=== PATIENT | male | born 1945 | race Caucasian/White ===

== ENCOUNTER 2017-06-16 13:12 | Inpatient (IN) | payer MEDICARE, OTHER ==
[2017-06-15] MEDS: INSULIN GLARGINE [LANtus] 3 ML PEN SC (22:58)
[2017-06-16] MEDS ORDERED: ONDANSETRON 4 MG INJ IV (14:30)
[2017-06-16] MEDS ORDERED: ZOLPIDEM 5 MG TAB PO (14:30)
[2017-06-16] MEDS ORDERED: NACL 0.9% 3 ML SYG IV (14:30)
[2017-06-16] MEDS ORDERED: DOCUSATE SODIUM 100 MG CAP PO (14:30)
[2017-06-16 14:53] LABS: ADD MAN DIFF? NO
[2017-06-16 14:58] LABS: ABNORMAL IP MESSAGE 1; BASOPHIL # 0.1 10^3/ul (0.0-0.1); BASOPHILS % 1.5 % (0.0-2.0); EOSINOPHILS # 0.2 10^3/ul (0.0-0.5); HEMATOCRIT 30.3 % (42.0-52.0); LYMPHOCYTES # 0.6 10^3/ul (0.8-2.9); MEAN CORPUSCULAR HEMOGLOBIN 28.7 pg (29.0-33.0); MEAN CORPUSCULAR VOLUME 86.8 fl (82.0-101.0); MEAN PLATELET VOLUME 12.1 fl (7.4-10.4); MONOCYTE # 0.6 10^3/ul (0.3-0.9); MONOCYTES % 12.8 % (0.0-11.0); NEUTROPHIL # 3.3 10^3/ul (1.6-7.5); NEUTROPHILS % 69.5 % (39.0-77.0); PLATELET COUNT 214 10^3/UL (140-415); POSITIVE DIFF @See below; RED BLOOD COUNT 3.49 10^6/ul (4.70-6.10); RED CELL DISTRIBUTION WIDTH 15.4 % (11.5-14.5)
[2017-06-16 14:58] LABS: WHITE BLOOD COUNT 4.8 10^3/ul (4.8-10.8)
[2017-06-16] MEDS ORDERED: GLUCOSE GEL 15 GRAM TUBE BUCCAL (15:00)
[2017-06-16] MEDS ORDERED: INSULIN ASPART [NOVOLOG] 3 ML PEN SC (15:00)
[2017-06-16] MEDS ORDERED: DEXTROSE 50% 50 ML SYRINGE IV ×2 (15:00)
[2017-06-16] MEDS ORDERED: GLUCAGON 1 MG INJ IM (15:00)
[2017-06-16] MEDS ORDERED: GLUCOSE GEL 15 GRAM TUBE PO ×2 (15:00)
[2017-06-16 15:12] LABS: INR 0.93; PROTIME 12.5 Sec (11.9-14.9)
[2017-06-16 15:13] LABS: PARTIAL THROMBOPLASTIN TIME 30.4 Sec (25.0-35.0)
[2017-06-16 15:25] LABS: ALANINE AMINOTRANSFERASE 52 IU/L (13-69); ALBUMIN 3.2 g/dl (3.3-4.9); ALBUMIN/GLOBULIN RATIO 1.18; ALKALINE PHOSPHATASE 76 IU/L (42-121); ANION GAP 12 (8-16); ASPARTATE AMINO TRANSFERASE 42 IU/L (15-46); BLOOD UREA NITROGEN 67 mg/dl (7-20); CALCIUM 8.3 mg/dl (8.4-10.2); CARBON DIOXIDE 27 mmol/L (21-31); CHLORIDE 98 mmol/L (97-110); CREATININE 5.05 mg/dl (0.61-1.24); GLUCOSE 186 mg/dl (70-220); MAGNESIUM 2.2 mg/dl (1.7-2.5); PHOSPHORUS 6.1 mg/dl (2.5-4.9); POTASSIUM 3.3 mmol/L (3.5-5.1); SODIUM 134 mmol/L (135-144); TOTAL PROTEIN 5.9 g/dl (6.1-8.1)
[2017-06-16] MEDS ORDERED: BUMETANIDE 6 MG in DEXTROSE 5% 36 ML IV (16:00)
[2017-06-16] MEDS: POTASSIUM CHLORIDE (SR) 20 MEQ TAB PO (17:02)
[2017-06-16] MEDS: INSULIN ASPART [NOVOLOG] 3 ML PEN SC (18:00)
[2017-06-16] MEDS ORDERED: METOPROLOL 50 MG TAB PO (21:00)
[2017-06-16] MEDS ORDERED: [UNRECOGNIZED DRUG - OTHER] XX (21:00)
[2017-06-16] MEDS: ATORVASTATIN 40 MG TAB PO (21:01)
[2017-06-16] MEDS: RANITIDINE 150 MG TAB PO (23:20)
[2017-06-17] MEDS: ACCU-CHEK XX (02:00)
[2017-06-17] MEDS: PANTOPRAZOLE (EC) 40 MG TAB PO (05:45)
[2017-06-17 06:08] LABS: ADD MAN DIFF? NO
[2017-06-17 06:22] LABS: BASOPHIL # 0.1 10^3/ul (0.0-0.1); BASOPHILS % 1.5 % (0.0-2.0); EOSINOPHILS # 0.2 10^3/ul (0.0-0.5); EOSINOPHILS % 4.3 % (0.0-7.0); HEMATOCRIT 28.5 % (42.0-52.0); HEMOGLOBIN 9.4 g/dl (14.0-18.0); LYMPHOCYTES # 0.8 10^3/ul (0.8-2.9); LYMPHOCYTES % 17.1 % (15.0-51.0); MEAN CORPUSCULAR HEMOGLOBIN 28.5 pg (29.0-33.0); MEAN CORPUSCULAR VOLUME 86.4 fl (82.0-101.0); MEAN PLATELET VOLUME 12.4 fl (7.4-10.4); MONOCYTE # 0.6 10^3/ul (0.3-0.9); MONOCYTES % 12.8 % (0.0-11.0); NEUTROPHILS % 64.1 % (39.0-77.0); PLATELET COUNT 190 10^3/UL (140-415); RED CELL DISTRIBUTION WIDTH 15.2 % (11.5-14.5)
[2017-06-17 06:22] LABS: WHITE BLOOD COUNT 4.7 10^3/ul (4.8-10.8)
[2017-06-17 06:54] LABS: ALANINE AMINOTRANSFERASE 43 IU/L (13-69); ALBUMIN 2.9 g/dl (3.3-4.9); ALBUMIN/GLOBULIN RATIO 1.03; ALKALINE PHOSPHATASE 57 IU/L (42-121); ANION GAP 12 (8-16); ASPARTATE AMINO TRANSFERASE 35 IU/L (15-46); BILIRUBIN,INDIRECT 0.1 mg/dl (0-1.1); BILIRUBIN,TOTAL 0.1 mg/dl (0.2-1.3); BLOOD UREA NITROGEN 70 mg/dl (7-20); CALCIUM 8.7 mg/dl (8.4-10.2); CARBON DIOXIDE 29 mmol/L (21-31); CHLORIDE 100 mmol/L (97-110); CREATININE 5.07 mg/dl (0.61-1.24); GLUCOSE 118 mg/dl (70-220); SODIUM 138 mmol/L (135-144); TOTAL PROTEIN 5.7 g/dl (6.1-8.1)
[2017-06-17] MEDS: INSULIN ASPART [NOVOLOG] 3 ML PEN SC ×3 (08:15→17:28)
[2017-06-17] MEDS: INSULIN GLARGINE [LANtus] 3 ML PEN SC (08:26)
[2017-06-17] MEDS: ASPIRIN 81 MG TAB PO (08:26)
[2017-06-17] MEDS: MUPIROCIN 2% 22 GM OINT TOP (08:27)
[2017-06-17] MEDS: POTASSIUM CHLORIDE (SR) 20 MEQ TAB PO ×3 (08:27→20:18)
[2017-06-17 10:58] LABS: TOTAL IRON BINDING CAPACITY 341 ug/dl (241-421)
[2017-06-17 11:52] LABS: % IRON SATURATION 10 % SAT (22-52); IRON 33 ug/dl (35-150)
[2017-06-17 12:12] LABS: FERRITIN 29.6 ng/ml (11.1-264.0)
[2017-06-17] MEDS: REFRESH TEARS BOTH EYES (15:36)
[2017-06-17] MEDS: EPOETIN 10000 UNITS/1 ML INJ (ESRD) SC (19:34)
[2017-06-17] MEDS: ATORVASTATIN 40 MG TAB PO (20:18)
[2017-06-17] MEDS: RANITIDINE 150 MG TAB PO (20:18)
[2017-06-17] MEDS: SOD FERRIC GLUC COMPLX 125 MG in SOD CHLORIDE 0.9% 100 ML IVPB (21:46)
[2017-06-18] MEDS: ACCU-CHEK XX (02:00)
[2017-06-18] MEDS: REFRESH TEARS BOTH EYES (06:00)
[2017-06-18] MEDS: PANTOPRAZOLE (EC) 40 MG TAB PO (06:00)
[2017-06-18 06:05] LABS: ADD MAN DIFF? NO
[2017-06-18 06:14] LABS: ABNORMAL IP MESSAGE 1; BASOPHILS % 0.9 % (0.0-2.0); EOSINOPHILS # 0.2 10^3/ul (0.0-0.5); EOSINOPHILS % 3.8 % (0.0-7.0); HEMATOCRIT 30.4 % (42.0-52.0); HEMOGLOBIN 9.8 g/dl (14.0-18.0); LYMPHOCYTES # 0.6 10^3/ul (0.8-2.9); LYMPHOCYTES % 12.7 % (15.0-51.0); MEAN CORPUSCULAR HEMOGLOBIN 28.1 pg (29.0-33.0); MEAN CORPUSCULAR HGB CONC 32.2 g/dl (32.0-37.0); MEAN CORPUSCULAR VOLUME 87.1 fl (82.0-101.0); MEAN PLATELET VOLUME 12.3 fl (7.4-10.4); MONOCYTE # 0.5 10^3/ul (0.3-0.9); MONOCYTES % 10.7 % (0.0-11.0); NEUTROPHIL # 3.2 10^3/ul (1.6-7.5); NEUTROPHILS % 71.5 % (39.0-77.0); PLATELET COUNT 185 10^3/UL (140-415); POSITIVE DIFF @See below; RED BLOOD COUNT 3.49 10^6/ul (4.70-6.10); RED CELL DISTRIBUTION WIDTH 14.9 % (11.5-14.5)
[2017-06-18 06:14] LABS: WHITE BLOOD COUNT 4.5 10^3/ul (4.8-10.8)
[2017-06-18 06:33] LABS: ALANINE AMINOTRANSFERASE 40 IU/L (13-69); ALBUMIN 2.9 g/dl (3.3-4.9); ALBUMIN/GLOBULIN RATIO 1.07; ALKALINE PHOSPHATASE 58 IU/L (42-121); ANION GAP 14 (8-16); ASPARTATE AMINO TRANSFERASE 24 IU/L (15-46); BLOOD UREA NITROGEN 71 mg/dl (7-20); CALCIUM 8.3 mg/dl (8.4-10.2); CARBON DIOXIDE 26 mmol/L (21-31); CHLORIDE 102 mmol/L (97-110); CREATININE 5.08 mg/dl (0.61-1.24); GLUCOSE 164 mg/dl (70-220); POTASSIUM 3.8 mmol/L (3.5-5.1); SODIUM 138 mmol/L (135-144); TOTAL PROTEIN 5.6 g/dl (6.1-8.1)
[2017-06-18] MEDS: INSULIN ASPART [NOVOLOG] 3 ML PEN SC ×3 (08:16→17:30)
[2017-06-18] MEDS: INSULIN GLARGINE [LANtus] 3 ML PEN SC (08:17)
[2017-06-18] MEDS: ASPIRIN 81 MG TAB PO (08:18)
[2017-06-18] MEDS: POTASSIUM CHLORIDE (SR) 20 MEQ TAB PO ×3 (08:18→21:03)
[2017-06-18] MEDS: MUPIROCIN 2% 22 GM OINT TOP (08:23)
[2017-06-18] MEDS: BUMETANIDE 6 MG in DEXTROSE 5% 36 ML IV (10:46)
[2017-06-18 13:29] LABS: HAAIG REFLEX REFLEX FILED
[2017-06-18 14:18] LABS: HEPATITIS B SURFACE ANTIGEN NEGATIVE (NEGATIVE)
[2017-06-18 14:36] LABS: HEPATITIS B CORE ANTIBODY NEGATIVE (NEGATIVE); HEPATITIS C VIRAL ANTIBODY NEGATIVE (NEGATIVE)
[2017-06-18] MEDS: ACETAMINOPHEN 325 MG TAB PO (18:08)
[2017-06-18] MEDS: ATORVASTATIN 40 MG TAB PO (21:04)
[2017-06-18] MEDS: RANITIDINE 150 MG TAB PO (21:04)
[2017-06-18] MEDS: SOD FERRIC GLUC COMPLX 125 MG in SOD CHLORIDE 0.9% 100 ML IVPB (23:20)
[2017-06-19] MEDS: ACCU-CHEK XX (02:00)
[2017-06-19 06:27] LABS: ADD MAN DIFF? NO
[2017-06-19 06:34] LABS: BASOPHIL # 0.1 10^3/ul (0.0-0.1); BASOPHILS % 1.3 % (0.0-2.0); EOSINOPHILS # 0.2 10^3/ul (0.0-0.5); EOSINOPHILS % 3.4 % (0.0-7.0); HEMATOCRIT 29.3 % (42.0-52.0); HEMOGLOBIN 9.5 g/dl (14.0-18.0); LYMPHOCYTES # 0.8 10^3/ul (0.8-2.9); LYMPHOCYTES % 14.7 % (15.0-51.0); MEAN CORPUSCULAR HGB CONC 32.4 g/dl (32.0-37.0); MEAN CORPUSCULAR VOLUME 86.4 fl (82.0-101.0); MEAN PLATELET VOLUME 12.6 fl (7.4-10.4); MONOCYTE # 0.6 10^3/ul (0.3-0.9); MONOCYTES % 12.2 % (0.0-11.0); NEUTROPHIL # 3.6 10^3/ul (1.6-7.5); PLATELET COUNT 172 10^3/UL (140-415); RED BLOOD COUNT 3.39 10^6/ul (4.70-6.10); RED CELL DISTRIBUTION WIDTH 15.1 % (11.5-14.5)
[2017-06-19 06:34] LABS: WHITE BLOOD COUNT 5.3 10^3/ul (4.8-10.8)
[2017-06-19] MEDS: PANTOPRAZOLE (EC) 40 MG TAB PO (06:41)
[2017-06-19 07:15] LABS: ALANINE AMINOTRANSFERASE 39 IU/L (13-69); ALBUMIN 2.9 g/dl (3.3-4.9); ALBUMIN/GLOBULIN RATIO 1.11; ALKALINE PHOSPHATASE 58 IU/L (42-121); ANION GAP 14 (8-16); ASPARTATE AMINO TRANSFERASE 26 IU/L (15-46); BLOOD UREA NITROGEN 78 mg/dl (7-20); CALCIUM 8.4 mg/dl (8.4-10.2); CARBON DIOXIDE 27 mmol/L (21-31); CHLORIDE 101 mmol/L (97-110); GLUCOSE 124 mg/dl (70-220); POTASSIUM 3.5 mmol/L (3.5-5.1); SODIUM 138 mmol/L (135-144); TOTAL PROTEIN 5.5 g/dl (6.1-8.1)
[2017-06-19] MEDS: INSULIN ASPART [NOVOLOG] 3 ML PEN SC ×3 (08:03→17:39)
[2017-06-19] MEDS: ASPIRIN 81 MG TAB PO (08:07)
[2017-06-19] MEDS: POTASSIUM CHLORIDE (SR) 20 MEQ TAB PO ×4 (08:08→20:36)
[2017-06-19] MEDS: MUPIROCIN 2% 22 GM OINT TOP (08:09)
[2017-06-19] MEDS: INSULIN GLARGINE [LANtus] 3 ML PEN SC (08:11)
[2017-06-19] MEDS: BUMETANIDE 6 MG in DEXTROSE 5% 36 ML IV (10:59)
[2017-06-19] MEDS: METOLAZONE 5 MG TAB PO (11:06)
[2017-06-19] MEDS: EPOETIN 10000 UNITS/1 ML INJ (ESRD) SC (17:38)
[2017-06-19] MEDS: ATORVASTATIN 40 MG TAB PO (20:37)
[2017-06-19] MEDS: RANITIDINE 150 MG TAB PO (20:37)
[2017-06-19] MEDS: SOD FERRIC GLUC COMPLX 125 MG in SOD CHLORIDE 0.9% 100 ML IVPB (22:11)
[2017-06-20] MEDS: ACCU-CHEK XX (02:00)
[2017-06-20] MEDS: PANTOPRAZOLE (EC) 40 MG TAB PO (05:36)
[2017-06-20] MEDS: METOLAZONE 5 MG TAB PO (05:37)
[2017-06-20 07:09] LABS: ALANINE AMINOTRANSFERASE 36 IU/L (13-69); ALBUMIN 2.9 g/dl (3.3-4.9); ALBUMIN/GLOBULIN RATIO 0.93; ALKALINE PHOSPHATASE 61 IU/L (42-121); ANION GAP 14 (8-16); ASPARTATE AMINO TRANSFERASE 26 IU/L (15-46); BILIRUBIN,INDIRECT 0.1 mg/dl (0-1.1); BILIRUBIN,TOTAL 0.1 mg/dl (0.2-1.3); BLOOD UREA NITROGEN 77 mg/dl (7-20); CALCIUM 9.1 mg/dl (8.4-10.2); CARBON DIOXIDE 26 mmol/L (21-31); CHLORIDE 101 mmol/L (97-110); CREATININE 5.04 mg/dl (0.61-1.24); GLUCOSE 132 mg/dl (70-220); MAGNESIUM 1.9 mg/dl (1.7-2.5); POTASSIUM 3.4 mmol/L (3.5-5.1); SODIUM 138 mmol/L (135-144)
[2017-06-20] MEDS: INSULIN ASPART [NOVOLOG] 3 ML PEN SC (07:59)
[2017-06-20] MEDS: INSULIN GLARGINE [LANtus] 3 ML PEN SC (07:59)
[2017-06-20] MEDS: POTASSIUM CHLORIDE (SR) 20 MEQ TAB PO (08:00)
[2017-06-20] MEDS: ASPIRIN 81 MG TAB PO (08:00)
[2017-06-20] MEDS: MUPIROCIN 2% 22 GM OINT TOP (08:01)
[2017-06-20] MEDS: SOD FERRIC GLUC COMPLX 125 MG in SOD CHLORIDE 0.9% 100 ML IVPB (10:01)
== END 2017-06-20 11:45 | disposition home or self-care (01) | DRG 683 ==
LOC: MS2 13:12
PROVIDERS: Internal Medicine
DX: I12.0 Hypertensive chronic kidney disease with stage 5 chronic kidney disease or end stage renal disease (principal); N18.5 Chronic kidney disease, stage 5; E11.21 Type 2 diabetes mellitus with diabetic nephropathy; Z79.4 Long term (current) use of insulin; Z95.1 Presence of aortocoronary bypass graft; E87.6 Hypokalemia
CPT/HCPCS: 71045; 80053; 82728; 82962; 83540; 83735; 84100; 85025; 85610; 85730; 86704; 86709; 86803; 87340; 93005

== ENCOUNTER 2017-08-19 18:43 | Inpatient (IN) | payer MEDICARE, OTHER ==
[2017-08-19] MEDS ORDERED: ZOLPIDEM 5 MG TAB PO (19:30)
[2017-08-19] MEDS ORDERED: NACL 0.9% 3 ML SYG IV (19:30)
[2017-08-19] MEDS ORDERED: LIDOCAINE 1% (MDV) 10 ML INJ INFIL (19:46)
[2017-08-19] MEDS ORDERED: DEXTROSE 50% 50 ML SYRINGE IV ×2 (20:00)
[2017-08-19] MEDS ORDERED: GLUCOSE GEL 15 GRAM TUBE BUCCAL (20:00)
[2017-08-19] MEDS ORDERED: GLUCOSE GEL 15 GRAM TUBE PO ×2 (20:00)
[2017-08-19] MEDS ORDERED: GLUCAGON 1 MG INJ IM (20:00)
[2017-08-19 20:34] LABS: ADD MAN DIFF? NO; HAAIG REFLEX REFLEX FILED
[2017-08-19] MEDS: INSULIN ASPART [NOVOLOG] 3 ML PEN SC (20:34)
[2017-08-19 20:36] LABS: BASOPHILS % 0.7 % (0.0-2.0); EOSINOPHILS # 0.2 10^3/ul (0.0-0.5); EOSINOPHILS % 2.9 % (0.0-7.0); HEMATOCRIT 28.5 % (42.0-52.0); HEMOGLOBIN 9.6 g/dl (14.0-18.0); LYMPHOCYTES # 0.7 10^3/ul (0.8-2.9); LYMPHOCYTES % 12.9 % (15.0-51.0); MEAN CORPUSCULAR HEMOGLOBIN 28.1 pg (29.0-33.0); MEAN CORPUSCULAR HGB CONC 33.7 g/dl (32.0-37.0); MEAN CORPUSCULAR VOLUME 83.3 fl (82.0-101.0); MEAN PLATELET VOLUME 11.3 fl (7.4-10.4); MONOCYTE # 0.7 10^3/ul (0.3-0.9); NEUTROPHIL # 3.9 10^3/ul (1.6-7.5); NEUTROPHILS % 71.3 % (39.0-77.0); PLATELET COUNT 217 10^3/UL (140-415); RED BLOOD COUNT 3.42 10^6/ul (4.70-6.10)
[2017-08-19 20:36] LABS: WHITE BLOOD COUNT 5.5 10^3/ul (4.8-10.8)
[2017-08-19] MEDS: ATORVASTATIN 40 MG TAB PO (20:39)
[2017-08-19 20:52] LABS: HEMOGLOBIN A1C 7.3 % (0-5.9)
[2017-08-19 20:54] LABS: IRON 47 ug/dl (35-150)
[2017-08-19 20:56] LABS: ALANINE AMINOTRANSFERASE 40 IU/L (13-69); ALBUMIN 2.9 g/dl (3.3-4.9); ALBUMIN/GLOBULIN RATIO 1.03; ALKALINE PHOSPHATASE 90 IU/L (42-121); ANION GAP 15 (8-16); ASPARTATE AMINO TRANSFERASE 35 IU/L (15-46); BLOOD UREA NITROGEN 65 mg/dl (7-20); CALCIUM 7.7 mg/dl (8.4-10.2); CARBON DIOXIDE 28 mmol/L (21-31); CHLORIDE 100 mmol/L (97-110); CREATININE 5.13 mg/dl (0.61-1.24); GLUCOSE 85 mg/dl (70-220); POTASSIUM 3.3 mmol/L (3.5-5.1); SODIUM 140 mmol/L (135-144); TOTAL PROTEIN 5.7 g/dl (6.1-8.1)
[2017-08-19 21:03] LABS: % IRON SATURATION 19 % SAT (22-52); TOTAL IRON BINDING CAPACITY 253 ug/dl (241-421)
[2017-08-19 21:26] LABS: HEPATITIS B SURFACE ANTIGEN NEGATIVE (NEGATIVE)
[2017-08-19 21:29] LABS: FERRITIN 98.2 ng/ml (11.1-264.0)
[2017-08-19 21:43] LABS: HEPATITIS B CORE ANTIBODY NEGATIVE (NEGATIVE); HEPATITIS C VIRAL ANTIBODY NEGATIVE (NEGATIVE)
[2017-08-19] MEDS: ACETAMINOPHEN 325 MG TAB PO (22:55)
[2017-08-20] MEDS: INSULIN ASPART [NOVOLOG] 3 ML PEN SC ×4 (08:15→20:58)
[2017-08-20] MEDS: INSULIN GLARGINE [LANtus] 3 ML PEN SC (08:19)
[2017-08-20] MEDS ORDERED: EPOETIN 10000 UNITS/1 ML INJ (ESRD) SC (10:00)
[2017-08-20] MEDS: PANTOPRAZOLE (EC) 40 MG TAB PO (10:37)
[2017-08-20] MEDS: ASPIRIN 81 MG TAB PO (10:37)
[2017-08-20] MEDS: AMLODIPINE 10 MG TAB PO (10:37)
[2017-08-20] MEDS: POTASSIUM CHLORIDE (SR) 10 MEQ TAB PO ×2 (10:54→20:51)
[2017-08-20 11:15] LABS: ADD UMIC YES; UR ASCORBIC ACID NEGATIVE (NEGATIVE); UR BACTERIA FEW /HPF (NONE SEEN); UR BILIRUBIN (Dip) NEGATIVE (NEGATIVE); UR BLOOD (Dip) NEGATIVE (NEGATIVE); UR CLARITY CLEAR (CLEAR); UR COLOR YELLOW (YELLOW); UR GLUCOSE (Dip) 2+ mg/dL (NEGATIVE); UR KETONES (Dip) NEGATIVE (NEGATIVE); UR LEUKOCYTE ESTERASE (Dip) NEGATIVE Leu/ul (NEGATIVE); UR NITRITE (Dip) NEGATIVE (NEGATIVE); UR RBC 2 /HPF (0-5); UR SPECIFIC GRAVITY (Dip) 1.011 (1.003-1.030); UR TOTAL PROTEIN (Dip) 3+ mg/dl (NEGATIVE); UR UROBILINOGEN (Dip) NEGATIVE (NEGATIVE); UR WBC 1 /HPF (0-5)
[2017-08-20] MEDS: FUROSEMIDE 40 MG TAB PO (17:21)
[2017-08-20] MEDS: ATORVASTATIN 40 MG TAB PO (20:51)
[2017-08-21 05:28] LABS: ADD MAN DIFF? NO
[2017-08-21 05:38] LABS: WHITE BLOOD COUNT 5.1 10^3/ul (4.8-10.8)
[2017-08-21 05:38] LABS: BASOPHILS % 0.8 % (0.0-2.0); EOSINOPHILS # 0.2 10^3/ul (0.0-0.5); EOSINOPHILS % 3.1 % (0.0-7.0); HEMATOCRIT 26.5 % (42.0-52.0); HEMOGLOBIN 8.9 g/dl (14.0-18.0); LYMPHOCYTES # 0.7 10^3/ul (0.8-2.9); LYMPHOCYTES % 12.8 % (15.0-51.0); MEAN CORPUSCULAR HGB CONC 33.6 g/dl (32.0-37.0); MEAN CORPUSCULAR VOLUME 83.3 fl (82.0-101.0); MEAN PLATELET VOLUME 11.6 fl (7.4-10.4); MONOCYTE # 0.6 10^3/ul (0.3-0.9); MONOCYTES % 11.2 % (0.0-11.0); NEUTROPHIL # 3.6 10^3/ul (1.6-7.5); NEUTROPHILS % 71.7 % (39.0-77.0); PLATELET COUNT 173 10^3/UL (140-415); RED BLOOD COUNT 3.18 10^6/ul (4.70-6.10); RED CELL DISTRIBUTION WIDTH 14.6 % (11.5-14.5)
[2017-08-21 05:52] LABS: ALANINE AMINOTRANSFERASE 39 IU/L (13-69); ALBUMIN 2.7 g/dl (3.3-4.9); ALBUMIN/GLOBULIN RATIO 0.87; ALKALINE PHOSPHATASE 73 IU/L (42-121); ANION GAP 15 (8-16); ASPARTATE AMINO TRANSFERASE 23 IU/L (15-46); BLOOD UREA NITROGEN 67 mg/dl (7-20); CALCIUM 7.7 mg/dl (8.4-10.2); CARBON DIOXIDE 27 mmol/L (21-31); CHLORIDE 101 mmol/L (97-110); CREATININE 5.45 mg/dl (0.61-1.24); GLUCOSE 114 mg/dl (70-220); POTASSIUM 3.1 mmol/L (3.5-5.1); SODIUM 140 mmol/L (135-144); TOTAL PROTEIN 5.8 g/dl (6.1-8.1)
[2017-08-21] MEDS: FUROSEMIDE 40 MG TAB PO (06:22)
[2017-08-21] MEDS: INSULIN ASPART [NOVOLOG] 3 ML PEN SC ×6 (08:08→21:45)
[2017-08-21] MEDS: INSULIN GLARGINE [LANtus] 3 ML PEN SC (08:13)
[2017-08-21] MEDS: PANTOPRAZOLE (EC) 40 MG TAB PO (08:54)
[2017-08-21] MEDS: POTASSIUM CHLORIDE (SR) 10 MEQ TAB PO ×3 (08:54→20:12)
[2017-08-21] MEDS: ASPIRIN 81 MG TAB PO (08:54)
[2017-08-21] MEDS: AMLODIPINE 10 MG TAB PO (09:00)
[2017-08-21] MEDS: ACCU-CHEK XX ×5 (10:27→19:50)
[2017-08-21 12:30] LABS: HEPATITIS B SURFACE ANTIBODY NEGATIVE (NEGATIVE)
[2017-08-21] MEDS: EPOETIN 10000 UNITS/1 ML INJ (ESRD) SC (19:51)
[2017-08-21] MEDS: SOD FERRIC GLUC COMPLX 125 MG in SOD CHLORIDE 0.9% 100 ML IVPB (19:51)
[2017-08-21] MEDS: ATORVASTATIN 40 MG TAB PO (20:12)
[2017-08-22 05:14] LABS: ADD MAN DIFF? NO
[2017-08-22 05:19] LABS: EOSINOPHILS % 2.2 % (0.0-7.0); HEMATOCRIT 25.8 % (42.0-52.0); HEMOGLOBIN 8.7 g/dl (14.0-18.0); LYMPHOCYTES % 12.4 % (15.0-51.0); MEAN CORPUSCULAR HEMOGLOBIN 28.1 pg (29.0-33.0); MEAN CORPUSCULAR HGB CONC 33.7 g/dl (32.0-37.0); MEAN CORPUSCULAR VOLUME 83.2 fl (82.0-101.0); MEAN PLATELET VOLUME 11.4 fl (7.4-10.4); MONOCYTES % 12.9 % (0.0-11.0); NEUTROPHILS % 71.5 % (39.0-77.0); PLATELET COUNT 168 10^3/UL (140-415); RED CELL DISTRIBUTION WIDTH 14.8 % (11.5-14.5)
[2017-08-22 05:20] LABS: BASOPHILS % 0.8 % (0.0-2.0); EOSINOPHILS # 0.1 10^3/ul (0.0-0.5); LYMPHOCYTES # 0.6 10^3/ul (0.8-2.9); MONOCYTE # 0.6 10^3/ul (0.3-0.9); NEUTROPHIL # 3.6 10^3/ul (1.6-7.5)
[2017-08-22 05:50] LABS: ALANINE AMINOTRANSFERASE 33 IU/L (13-69); ALBUMIN 2.8 g/dl (3.3-4.9); ALBUMIN/GLOBULIN RATIO 0.96; ALKALINE PHOSPHATASE 75 IU/L (42-121); ANION GAP 14 (8-16); ASPARTATE AMINO TRANSFERASE 24 IU/L (15-46); BLOOD UREA NITROGEN 43 mg/dl (7-20); CALCIUM 7.8 mg/dl (8.4-10.2); CARBON DIOXIDE 29 mmol/L (21-31); CHLORIDE 99 mmol/L (97-110); CREATININE 3.93 mg/dl (0.61-1.24); GLUCOSE 163 mg/dl (70-220); POTASSIUM 3.6 mmol/L (3.5-5.1); SODIUM 138 mmol/L (135-144); TOTAL PROTEIN 5.7 g/dl (6.1-8.1)
[2017-08-22] MEDS: INSULIN ASPART [NOVOLOG] 3 ML PEN SC ×7 (08:06→20:46)
[2017-08-22] MEDS: AMLODIPINE 10 MG TAB PO (08:07)
[2017-08-22] MEDS: PANTOPRAZOLE (EC) 40 MG TAB PO (08:12)
[2017-08-22] MEDS: ASPIRIN 81 MG TAB PO (08:12)
[2017-08-22] MEDS: POTASSIUM CHLORIDE (SR) 10 MEQ TAB PO (08:12)
[2017-08-22] MEDS: INSULIN GLARGINE [LANtus] 3 ML PEN SC (08:15)
[2017-08-22] MEDS: ACCU-CHEK XX ×6 (08:54→20:43)
[2017-08-22] MEDS: SOD FERRIC GLUC COMPLX 125 MG in SOD CHLORIDE 0.9% 100 ML IVPB (17:29)
[2017-08-22] MEDS: ATORVASTATIN 40 MG TAB PO (20:45)
[2017-08-23 05:18] LABS: ADD MAN DIFF? NO
[2017-08-23 05:21] LABS: WHITE BLOOD COUNT 6.4 10^3/ul (4.8-10.8)
[2017-08-23 05:21] LABS: BASOPHIL # 0.1 10^3/ul (0.0-0.1); BASOPHILS % 0.8 % (0.0-2.0); EOSINOPHILS # 0.1 10^3/ul (0.0-0.5); EOSINOPHILS % 1.4 % (0.0-7.0); HEMATOCRIT 27.5 % (42.0-52.0); HEMOGLOBIN 9.1 g/dl (14.0-18.0); LYMPHOCYTES # 0.7 10^3/ul (0.8-2.9); LYMPHOCYTES % 10.9 % (15.0-51.0); MEAN CORPUSCULAR HGB CONC 33.1 g/dl (32.0-37.0); MEAN CORPUSCULAR VOLUME 84.6 fl (82.0-101.0); MEAN PLATELET VOLUME 11.5 fl (7.4-10.4); MONOCYTE # 0.8 10^3/ul (0.3-0.9); MONOCYTES % 12.3 % (0.0-11.0); NEUTROPHIL # 4.8 10^3/ul (1.6-7.5); NEUTROPHILS % 74.3 % (39.0-77.0); PLATELET COUNT 162 10^3/UL (140-415); RED BLOOD COUNT 3.25 10^6/ul (4.70-6.10); RED CELL DISTRIBUTION WIDTH 14.7 % (11.5-14.5)
[2017-08-23 05:54] LABS: ANION GAP 13 (8-16); BLOOD UREA NITROGEN 34 mg/dl (7-20); CALCIUM 8.1 mg/dl (8.4-10.2); CARBON DIOXIDE 29 mmol/L (21-31); CHLORIDE 99 mmol/L (97-110); CREATININE 3.48 mg/dl (0.61-1.24); GLUCOSE 98 mg/dl (70-220); POTASSIUM 3.5 mmol/L (3.5-5.1); SODIUM 137 mmol/L (135-144)
[2017-08-23] MEDS: INSULIN ASPART [NOVOLOG] 3 ML PEN SC ×7 (08:15→21:00)
[2017-08-23] MEDS: ACCU-CHEK XX ×6 (08:19→19:50)
[2017-08-23] MEDS: ASPIRIN 81 MG TAB PO (08:35)
[2017-08-23] MEDS: PANTOPRAZOLE (EC) 40 MG TAB PO (08:35)
[2017-08-23] MEDS: AMLODIPINE 10 MG TAB PO (08:36)
[2017-08-23] MEDS: INSULIN GLARGINE [LANtus] 3 ML PEN SC (08:41)
[2017-08-23] MEDS: SOD FERRIC GLUC COMPLX 125 MG in SOD CHLORIDE 0.9% 100 ML IVPB (18:13)
[2017-08-23] MEDS: ATORVASTATIN 40 MG TAB PO (20:36)
[2017-08-24 06:11] LABS: ADD MAN DIFF? NO
[2017-08-24 06:21] LABS: WHITE BLOOD COUNT 5.6 10^3/ul (4.8-10.8)
[2017-08-24 06:21] LABS: BASOPHIL # 0.1 10^3/ul (0.0-0.1); BASOPHILS % 1.1 % (0.0-2.0); EOSINOPHILS # 0.1 10^3/ul (0.0-0.5); EOSINOPHILS % 2.5 % (0.0-7.0); HEMATOCRIT 26.8 % (42.0-52.0); LYMPHOCYTES # 0.8 10^3/ul (0.8-2.9); LYMPHOCYTES % 13.4 % (15.0-51.0); MEAN CORPUSCULAR HEMOGLOBIN 28.2 pg (29.0-33.0); MEAN CORPUSCULAR HGB CONC 33.6 g/dl (32.0-37.0); MEAN PLATELET VOLUME 12.7 fl (7.4-10.4); MONOCYTE # 0.8 10^3/ul (0.3-0.9); NEUTROPHIL # 3.8 10^3/ul (1.6-7.5); NEUTROPHILS % 68.6 % (39.0-77.0); PLATELET COUNT 164 10^3/UL (140-415); RED BLOOD COUNT 3.19 10^6/ul (4.70-6.10); RED CELL DISTRIBUTION WIDTH 14.9 % (11.5-14.5)
[2017-08-24 07:06] LABS: ALANINE AMINOTRANSFERASE 30 IU/L (13-69); ALBUMIN 2.5 g/dl (3.3-4.9); ALKALINE PHOSPHATASE 76 IU/L (42-121); ASPARTATE AMINO TRANSFERASE 21 IU/L (15-46); BILIRUBIN,INDIRECT 0.1 mg/dl (0-1.1); BILIRUBIN,TOTAL 0.1 mg/dl (0.2-1.3); TOTAL PROTEIN 5.2 g/dl (6.1-8.1)
[2017-08-24 07:16] LABS: ANION GAP 13 (8-16); BLOOD UREA NITROGEN 42 mg/dl (7-20); CALCIUM 8.1 mg/dl (8.4-10.2); CARBON DIOXIDE 27 mmol/L (21-31); CHLORIDE 100 mmol/L (97-110); CREATININE 4.27 mg/dl (0.61-1.24); GLUCOSE 121 mg/dl (70-220); POTASSIUM 3.1 mmol/L (3.5-5.1); SODIUM 137 mmol/L (135-144)
[2017-08-24] MEDS: ACCU-CHEK XX ×4 (08:00→14:05)
[2017-08-24] MEDS: INSULIN ASPART [NOVOLOG] 3 ML PEN SC ×4 (08:15→12:02)
[2017-08-24] MEDS: ASPIRIN 81 MG TAB PO (08:26)
[2017-08-24] MEDS: PANTOPRAZOLE (EC) 40 MG TAB PO (08:27)
[2017-08-24] MEDS: AMLODIPINE 10 MG TAB PO (08:27)
[2017-08-24] MEDS: INSULIN GLARGINE [LANtus] 3 ML PEN SC (08:32)
[2017-08-24] MEDS: POTASSIUM CHLORIDE (SR) 20 MEQ TAB PO (10:03)
[2017-08-24] MEDS: INFLUENZA VIRUS VACCINE 0.5 ML (DISPENSING) IM* ×2 (14:00→15:19)
== END 2017-08-24 16:20 | disposition home or self-care (01) | DRG 682 ==
LOC: MS2 18:43
PROC: 5A1D70Z Performance of Urinary Filtration, Intermittent, Less than 6 Hours Per Day (ICD-10-PCS; principal; 2017-08-21)
DX: I12.0 Hypertensive chronic kidney disease with stage 5 chronic kidney disease or end stage renal disease (principal); N18.6 End stage renal disease; E11.22 Type 2 diabetes mellitus with diabetic chronic kidney disease; E11.21 Type 2 diabetes mellitus with diabetic nephropathy; E11.319 Type 2 diabetes mellitus with unspecified diabetic retinopathy without macular edema; D63.1 Anemia in chronic kidney disease; I25.10 Atherosclerotic heart disease of native coronary artery without angina pectoris; I73.9 Peripheral vascular disease, unspecified; Z95.1 Presence of aortocoronary bypass graft; Z95.828 Presence of other vascular implants and grafts; N40.0 Benign prostatic hyperplasia without lower urinary tract symptoms; H26.9 Unspecified cataract; M47.9 Spondylosis, unspecified; R60.0 Localized edema; K21.9 Gastro-esophageal reflux disease without esophagitis; E11.42 Type 2 diabetes mellitus with diabetic polyneuropathy; Z79.4 Long term (current) use of insulin; Z99.2 Dependence on renal dialysis; E78.5 Hyperlipidemia, unspecified
CPT/HCPCS: 71045; 74019; 80048; 80053; 80076; 81001; 82728; 82962; 83036; 83540; 85025; 86704; 86706; 86709; 86803; 87075; 87340; 90686; 90935; 93005; 99217